=== PATIENT | male | born 1975 | race American Indian/Alaskan Native ===

== ENCOUNTER 2018-01-23 21:15 | Emergency (ER) | payer BC, MEDICAID ==
[2018-01-24] MEDS ORDERED: NORCO 7.5/325 PO ONE (01:18)
[2018-01-24] MEDS ORDERED: XYLOCAINE 1% 20 mL INFILTRATI ONE (01:19)
--- NOTE | 2018-01-24 01:22 | Emergency Department Report ---
Abscess Boil HPI - HPI Chief Complaint: Skin/Abscess/Foreign Body Stated Complaint: FACIAL BOIL Time Seen by Provider: 01/24/18 01:17 Duration: 3 Days Location: Other (chin) History: Yes Pain, Yes Previous History, No Fever, No Purulent Drainage, No Numbness, No Foreign Body, No Insect Bite HPI: 43-year-old -Portuguese male comes in complaining of multiple/abscess to the right chin 2 days. Patient reports that he has a history of these boils and abscess. Patient reports his pain is 8 out of 10 sharp achy. Home Medications: Previous Rx's Medication Instructions Recorded Last Taken Type Gentamicin 0.3% Ophth Soln 2 drops OP Q4H #1 bottle 05/15/15 Unknown Rx Ibuprofen [Motrin] 800 mg PO Q8HR PRN #60 tablet 05/15/15 Unknown Rx Sulfamethoxazole/Trimethoprim 1 each PO BID #20 tablet 01/24/18 Unknown Rx [Bactrim DS TAB] traMADol [Ultram 50 MG tab] 50 mg PO Q6HR PRN #12 tablet 01/24/18 Unknown Rx Allergies/Adverse Reactions: Allergies Allergy/AdvReac Type Severity Reaction Status Date / Time No Known Allergies Allergy Unverified 05/15/15 06:04 ED Review of Systems ROS: Stated complaint: FACIAL BOIL Other details as noted in HPI Comment: All other systems reviewed and negative Skin: lesions ED Past Medical Hx - Past Medical History Previous Medical History?: No - Surgical History Additional Surgical History: Bilateral wrists with hardware, Bilateral fractured femur, - Social History Smoking Status: Current Every Day Smoker Substance Use Type: Marijuana - Medications Home Medications: Home Medications Medication Instructions Recorded Confirmed Last Taken Type Gentamicin 0.3% Ophth Soln 2 drops OP Q4H #1 bottle 05/15/15 Unknown Rx Ibuprofen [Motrin] 800 mg PO Q8HR PRN #60 tablet 05/15/15 Unknown Rx Sulfamethoxazole/Trimethoprim 1 each PO BID #20 tablet 01/24/18 Unknown Rx [Bactrim DS TAB] traMADol [Ultram 50 MG tab] 50 mg PO Q6HR PRN #12 tablet 01/24/18 Unknown Rx ED Abscess Boil Physical Exam - Exam General: Vital signs noted. No distress. Alert and acting appropriately. Size: 5 cm Exam: Yes Tenderness, Yes Fluctuance, No Surrounding Cellulites/Erythema, No Lymphangitis, No Crepitation, No Heart Murmur, No Normal Neurologic Exam, No Normal Circulation I & D Note - I & D Note I & D Note: DATE OF PROCEDURE: 01/24/2018. PREOPERATIVE DIAGNOSES: 1.soft tissue infection2. soft tissue infection. POSTOPERATIVE DIAGNOSES: 1. 2. Chin soft tissue infection. Infection appeared to be contained to subcutaneous tissue and there was no evidence of necrotizing soft tissue infection including myonecrosis. OPERATION PERFORMED: Incision and drainage of ..... soft tissue abscess. Provider: Sheridan Hardy PA-C. ANESTHESIA: Local. DESCRIPTION OF PROCEDURE: The patient was prepped and draped. Seropurulent, somewhat bloody fluid was noted. The infection appeared contained to a golf ball-sized area in the subcutaneous tissues above the fascia. There was no evidence of myonecrosis , penetration of the fascia or significant extent along the fascia of the infection. We cleaned the area with Betadine and then packed the wound .......... Dry dressings were applied. The patient appeared to tolerate the procedure well. ED Course Vital Signs 01/23/18 01/23/18 21:13 21:43 Temperature 98.7 F 98.9 F Pulse Rate 96 H 97 H Respiratory 18 16 Rate Blood Pressure 123/75 123/75 O2 Sat by Pulse 97 98 Oximetry Critical care attestation.: If time is entered above; I have spent that time in minutes in the direct care of this critically ill patient, excluding procedure time. ED Medical Decision Making - Medical Decision Making Patient has been evaluated with this provider fast track. [place] 7.5 mg over 325 was given for pain management. Incision and drainage procedure performed patient toleratEd. Patient will be discharged with pain medication in antibiotics. ED Disposition Clinical Impression: Abscess of chin Disposition: - TO HOME OR SELFCARE Is pt being admited?: No Does the pt Need Aspirin: No Condition: Stable Instructions: Abscess (ED), Abscess Incision and Drainage (ED) Additional Instructions: Please complete antibiotics as prescribed. Please take pain medication as needed. Please return back to the emergency room in 48 hours to have packing removed. Prescriptions: Sulfamethoxazole/Trimethoprim [Bactrim DS TAB] 1 each PO BID #20 tablet traMADol [Ultram 50 MG tab] 50 mg PO Q6HR PRN #12 tablet PRN Reason: Pain Referrals: PRIMARY CARE, [Primary Care Provider] - 3-5 Days Forms: Accompanied Note, Work/School Release Form(ED)
[2018-01-24] MEDS ORDERED: XYLOCAINE 2% INFILTRATI ONE (01:32)
[2018-01-24 02:15] VITALS: BP 126/76
== END 2018-01-24 02:15 | disposition home or self-care (01) ==
LOC: ED 21:15
DX: L02.01 Cutaneous abscess of face (principal); F17.200 Nicotine dependence, unspecified, uncomplicated; F12.90 Cannabis use, unspecified, uncomplicated

== ENCOUNTER 2018-01-25 20:08 | Emergency (ER) | payer BC ==
[2018-01-25 20:21] VITALS: BP 117/73
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
== END 2018-01-26 00:15 | disposition home or self-care (01) ==
LOC: ED 20:08
DX: Z48.01 Encounter for change or removal of surgical wound dressing (principal); S01.411D Laceration without foreign body of right cheek and temporomandibular area, subsequent encounter
CPT/HCPCS: 99282

== ENCOUNTER 2018-08-07 00:01 | Emergency (ER) | payer SELFPAY ==
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
[2018-08-07 02:44] VITALS: BP 108/60
== END 2018-08-07 02:44 | disposition home or self-care (01) ==
LOC: ED 00:01
DX: R07.89 Other chest pain (principal); F17.200 Nicotine dependence, unspecified, uncomplicated
CPT/HCPCS: 93005; 93010; 99282